=== PATIENT | male | born 2000 | race African-American/Black ===

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

== ENCOUNTER 2019-03-02 20:31 | Emergency (ER) | payer SELFPAY ==
[2019-03-02] MEDS ORDERED: Ondansetron PF 4 MG/2 ML Vial ONE (21:27)
[2019-03-02 21:45] LABS: Anion Gap 20 mmol/L (10-20); BUN (Urea Nitrogen) 11 mg/dL (8.4-21.0); Calc. Creatinine Clearance 0 mL/min (70-130); Calcium 10.2 mg/dL (7.8-10.44); Carbon Dioxide 24 mmol/L (22-29); Chloride 103 mmol/L (98-107); Estimated GFR-MDRD Greater than 90; Glucose 81 mg/dL (70-105); Potassium 3.7 mmol/L (3.5-5.1); Sodium 143 mmol/L (136-145)
[2019-03-02 21:49] LABS: Hemoglobin 16.9 g/dL (14.0-18.0); Mean Corpuscular HGB CONC 33.4 g/dL (32.0-36.0); Mean Corpuscular Hemoglobin 30.5 pg (25.0-35.0); Mean Corpuscular Volume 91.2 fL (78.0-98.0); Mean Platelet Volume 6.8 fL (7.4-10.4); Platelet Count 316 thou/uL (130-400); RBC Distribution Width 12.1 % (11.5-14.5); Red Blood Cell (RBC) Count 5.55 mill/uL (4.00-5.20)
[2019-03-02 22:01] LABS: Band 2 % (5-11); Lymphocytes 3 % (28-48); MDiff Complete? YES; Monocytes 3 % (0-4); Neutrophil 92 % (31-61); Platelet Morphology Comment Appears Adequate; RBC Morphology Normal
== END 2019-03-02 22:13 | disposition home or self-care (01) ==
LOC: SCSER 20:31
DX: E86.0 Dehydration (principal); R11.2 Nausea with vomiting, unspecified; J45.909 Unspecified asthma, uncomplicated
CPT/HCPCS: 80048; 85025; 96361; 96374; J2405

== ENCOUNTER 2020-01-10 23:57 | Inpatient (IN) | payer OTHER ==
[2020-01-11] MEDS ORDERED: Adacel (T-DAP) 0.5 ML SYRINGE ONE (00:06)
[2020-01-11] MEDS ORDERED: Ondansetron PF 4 MG/2 ML Vial ONE ×2 (00:10→10:34)
[2020-01-11] MEDS ORDERED: Fentanyl 100 MCG/2 ML VIAL ONE ×2 (00:10→00:29)
[2020-01-11 00:17] LABS: Hemoglobin 15.2 g/dL (14.0-18.0); Mean Corpuscular HGB CONC 33.7 g/dL (32.0-36.0); Mean Corpuscular Hemoglobin 31.5 pg (25.0-35.0); Mean Corpuscular Volume 93.3 fL (78.0-98.0); Mean Platelet Volume 8.4 fL (7.4-10.4); Platelet Count 323 thou/uL (130-400); RBC Distribution Width 12.2 % (11.5-14.5); Red Blood Cell (RBC) Count 4.84 mill/uL (4.00-5.20); White Blood Cell (WBC) Count 11.4 thou/uL (4.8-10.8)
[2020-01-11 00:22] LABS: PTT 23.4 sec (22.9-36.1); Prothrombin Time 13.6 sec (12.0-14.7)
[2020-01-11 00:35] LABS: ALT (SGPT) 11 U/L (8-55); AST (SGOT) 18 U/L (5-34); Albumin 4.3 g/dL (3.5-5.0); Alkaline Phosphatase 83 U/L (50-130); Anion Gap 19 mmol/L (10-20); BUN (Urea Nitrogen) 10 mg/dL (8.9-20.6); Bilirubin, Total 0.3 mg/dL (0.2-1.2); Calc. Creatinine Clearance 0 mL/min (70-130); Calcium 9.4 mg/dL (7.8-10.44); Carbon Dioxide 20 mmol/L (22-29); Chloride 103 mmol/L (98-107); Estimated GFR-MDRD Greater than 90; Globulin 3.5 g/dL (2.4-3.5); Glucose 123 mg/dL (70-105); Potassium 3.6 mmol/L (3.5-5.1); Protein, Total 7.8 g/dL (6.0-8.3); Sodium 138 mmol/L (136-145)
[2020-01-11 00:52] LABS: Eosinophils 3 % (0-10); Lymphocytes 55 % (28-48); MDiff Complete? YES; Monocytes 6 % (0-4); Neutrophil 34 % (31-61); Reactive Lymphocytes 2 % (0-10)
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
[2020-01-11] MEDS ORDERED: Ketorolac Tromethamine 30 MG/ML VIAL ONE ×2 (02:33→10:34)
[2020-01-11] MEDS ORDERED: Dextrose 50% Abboject 50 ML SYRINGE SLOW IVP PRN (03:27)
[2020-01-11] MEDS ORDERED: Promethazine HCl 25 MG/ML VIAL IM PRN ×3 (03:27→09:34)
[2020-01-11] MEDS ORDERED: Dextrose 5% in Water 1,000 ML IV PRN (03:27)
[2020-01-11] MEDS ORDERED: hydrALAZINE 20 MG/ML VIAL SLOW IVP PRN (03:27)
[2020-01-11] MEDS ORDERED: Ondansetron ODT 4 MG TAB PO PRN (03:27)
[2020-01-11] MEDS ORDERED: Ondansetron PF 4 MG/2 ML Vial IVP PRN (03:27)
[2020-01-11] MEDS ORDERED: traMADol HCl 50 MG TAB PO PRN ×2 (03:27)
[2020-01-11] MEDS ORDERED: Morphine 2 MG/ML VIAL SLOW IVP PRN (03:27)
[2020-01-11] MEDS ORDERED: Cyclobenzaprine 10 MG TAB PO PRN (03:27)
[2020-01-11] MEDS ORDERED: Ketorolac Tromethamine 30 MG/ML VIAL IVP SCH (03:30)
[2020-01-11 03:38] VITALS: BMI 21.0
[2020-01-11] MEDS: Sodium Chloride 0.9% 1,000 ML IV SCH ×2 (03:39→13:30)
[2020-01-11] MEDS ORDERED: Ibuprofen 600 MG TAB PO PRN (03:45)
[2020-01-11 05:47] LABS: #Lymphocytes 1.1 thou/uL (1.20-3.40); #Neutrophils 11.7 thou/uL (1.40-6.50); %Basophils 0.3 % (0.0-1.0); %Eosinophils 0.1 % (0.0-10.0); %Lymphocytes 8.1 % (28.0-48.0); %Neutrophils 84.5 % (31.0-61.0); Hemoglobin 13.4 g/dL (14.0-18.0); Mean Corpuscular Hemoglobin 30.7 pg (25.0-35.0); Mean Platelet Volume 8.6 fL (7.4-10.4); Platelet Count 257 thou/uL (130-400); RBC Distribution Width 12.2 % (11.5-14.5); Red Blood Cell (RBC) Count 4.37 mill/uL (4.00-5.20); White Blood Cell (WBC) Count 13.9 thou/uL (4.8-10.8)
[2020-01-11 06:06] LABS: Anion Gap 11 mmol/L (10-20); BUN (Urea Nitrogen) 8 mg/dL (8.9-20.6); Calc. Creatinine Clearance 116 mL/min (70-130); Calcium 8.6 mg/dL (7.8-10.44); Carbon Dioxide 25 mmol/L (22-29); Chloride 106 mmol/L (98-107); Estimated GFR-MDRD Greater than 90; Glucose 89 mg/dL (70-105); Potassium 3.8 mmol/L (3.5-5.1); Sodium 138 mmol/L (136-145)
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
[2020-01-11] MEDS ORDERED: Bupivacaine 0.25% HCL 30 ML VIAL ONE (08:11)
[2020-01-11] MEDS ORDERED: Lidocaine 1% w/Epinephrine 1:100K 20 ML VIAL ONE (08:11)
[2020-01-11] MEDS: Famotidine 20 MG TAB PO SCH ×3 (08:24→21:52)
[2020-01-11] MEDS: Acetaminophen 325 MG TAB PO SCH ×3 (08:25→17:55)
[2020-01-11] MEDS ORDERED: HYDROmorphone 0.5 MG/0.5 ML SYRINGE ONE (08:34)
[2020-01-11] MEDS ORDERED: Lidocaine 1% (PF) 30 ML VIAL ONE (09:20)
[2020-01-11] MEDS ORDERED: Promethazine HCl 25 MG/ML VIAL SLOW IVP PRN (09:34)
[2020-01-11] MEDS ORDERED: HYDROmorphone 2 MG/ML VIAL SLOW IVP PRN (09:34)
[2020-01-11] MEDS ORDERED: PACU-Morphine 4MG/ML VIAL SLOW IVP PRN (09:34)
[2020-01-11] MEDS ORDERED: Ondansetron HCl/PF 4 MG/2 ML Vial IVP PRN (09:34)
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
[2020-01-11] MEDS ORDERED: EPHEDRINE 25 MG/5 ML SYRINGE ONE (10:34)
[2020-01-11] MEDS ORDERED: PROPOFOL 200 MG/20 ML VIAL ONE (10:34)
[2020-01-11] MEDS ORDERED: Lidocaine 1% PF 5 ML VIAL ONE (10:34)
[2020-01-11] MEDS ORDERED: Dexamethasone 20 MG/5 ML VIAL ONE (10:34)
[2020-01-11 12:14] LABS: SARS-CoV-2 MS2 Positive; SARS-CoV-2 N Gene Negative; SARS-CoV-2 S Gene Negative; SARS-CoV-2 by NAA Not Detected (NotDetected); SARS-CoV-2 orf1ab Negative
[2020-01-11] MEDS ORDERED: Iopamidol 370 76% 100 ML VIAL ONE (14:45)
[2020-01-11] MEDS: CEFAZOLIN 2 GM in Premix Bag 1 BAG IVPB SCH (17:55)
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
[2020-01-11] MEDS ORDERED: Losartan 25 MG TAB PO SCH (21:00)
[2020-01-12] MEDS: Acetaminophen 325 MG TAB PO SCH ×3 (00:48→12:13)
[2020-01-12] MEDS: CEFAZOLIN 2 GM in Premix Bag 1 BAG IVPB SCH (00:48)
[2020-01-12] MEDS: Famotidine 20 MG TAB PO SCH (08:58)
[2020-01-12] MEDS ORDERED: Amlodipine 5 MG TAB PO SCH (09:00)
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
[2020-01-12 12:00] VITALS: BP 118/66; TEMP 98.7
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
== END 2020-01-12 13:40 | disposition home or self-care (01) | DRG 605 ==
LOC: ERS 23:57 → EEVIPCON 01-11 01:08 → SURG A 01-11 01:08
PROVIDERS: ADMIT Specialist; ATTEND Specialist
PROC: 0H9LXZZ Drainage of Left Lower Leg Skin, External Approach (ICD-10-PCS; principal; 2020-01-11)
DX: S71.102A Unspecified open wound, left thigh, initial encounter (principal); W34.09XA Accidental discharge from other specified firearms, initial encounter
CPT/HCPCS: 36415; 74177; 80053; 85025; 85610; 85730; 86850; 86900; 86901; 87635; 90471; 90715; 96365; 96366; 96375; 99292; G0390; J0690; J1100; J1170; J1885; J2001; J2405; J2704; J3010; Q9967; S0020; U0003

== ENCOUNTER 2021-06-02 11:01 | Emergency (ER) | payer OTHER, SELFPAY ==
[2021-06-03 16:50] LABS: SARS-CoV-2 PCR by NAA Not Detected (NotDetected)
== END 2021-06-02 12:15 | disposition home or self-care (01) ==
LOC: ERS 11:01
DX: R05.9 Cough, unspecified (principal); Z20.822 Contact with and (suspected) exposure to COVID-19
CPT/HCPCS: 99283; U0003; U0005

== ENCOUNTER 2021-10-22 11:17 | Emergency (ER) | payer SELFPAY | END 2021-10-22 13:24 | disposition home or self-care (01) | LOC: ERS 11:17 | DX: L25.0 Unspecified contact dermatitis due to cosmetics (principal); J45.909 Unspecified asthma, uncomplicated | CPT/HCPCS: 99282 ==